=== PATIENT | male | born 1955 | race Caucasian/White ===

== ENCOUNTER 2016-08-29 02:48 | Emergency (ER) | payer OTHER ==
[~2016-08-29] VITALS: Ht 167.6 cm; Wt 104.0 kg
[2016-08-29] MEDS ORDERED: MEDROL DOSEPAK4 MG PO (02:58)
[2016-08-29] MEDS ORDERED: VALIUM5 MG PO (02:58)
[2016-08-29 03:42] VITALS: BP 157/87
== END 2016-08-29 03:46 | disposition home or self-care (01) ==
LOC: EME 02:48
DX: G89.29 Other chronic pain (principal); M25.551 Pain in right hip; M54.9 Dorsalgia, unspecified
CPT/HCPCS: 99281; 99284